=== PATIENT | female | born 1970 ===

== ENCOUNTER 2025-03-04 06:01 | Day surgery (SDC) | payer OTHER ==
[2025-02-24 08:15] VITALS: BP 114/75
[2025-02-24 08:19] LABS: HEMATOCRIT 36.1 % (36.0-45.00); HEMOGLOBIN 12.3 g/dL (12.0-15.00); MEAN CELL VOLUME 89.5 fL (80.00-100.00); MEAN CORPUSCULAR HEMOGLOBIN 30.4 pg (27.00-32.0); PLATELET COUNT 276 K/uL (150-450); RED BLOOD COUNT 4.04 M/uL (4.00-6.00); RED CELL DISTRIBUTION WIDTH 14.1 % (11.5-14.5)
[2025-02-24 08:30] LABS: INR < 0.93; PARTIAL THROMBOPLASTIN TIME 26.5 SECONDS (22.0-34.0)
[2025-02-24 08:37] LABS: PH,URINE 6.5 (5.0-8.0); URINE APPEARANCE Clear; URINE BILIRRUBIN Negative (NEGATIVE); URINE BLOOD Negative; URINE COLOR Yellow; URINE GLUCOSE Negative (NEGATIVE); URINE KETONE Negative (NEGATIVE); URINE LEUKOCYTE Negative; URINE NITRATE Negative; URINE PROTEIN Negative (NEGATIVE); URINE RBC 7.2 uL (0.0-20.8); URINE UROBILINOGEN 0.2 E.U./dl; URINE WBC 2.3 uL (0.0-23.2)
[2025-02-24 08:39] LABS: URINE BACTERIA 1.2 uL (0.0-1933)
[2025-02-24 09:01] LABS: ALBUMIN 3.8 gm/dL (3.4-5.0); BILIRUBIN TOTAL 0.49 mg/dL (0.3-1.2); CALCIUM 10.2 mg/dL (8.5-10.1); CREATININE SERUM 0.74 mg/dL (0.55-1.02); GFR 82.09; GLOBULINA 3.7 G/DL (2.4-3.5); POTASSIUM 5.1 mEq/L (3.5-5.1); TOTAL PROTEIN 7.5 gm/dL (6.4-8.2)
[2025-02-24 09:02] LABS: PROTHROMBIN TIME 9.9 SECONDS (9.0-11.5)
[~2025-03-04] VITALS: Ht 162.6 cm; Wt 64.4 kg
[~2025-03-04 06:01] MED LIST: ATACAND16 MG PO; CRESTOR40 MG
[2025-03-04] MEDS ORDERED: POVIDONE-IODINE 118 ML BOTT TOP ONE (09:12)
[2025-03-04] MEDS ORDERED: PROMETHAZINE HCL 50 MG/ML AMPUL IM ONE (10:15)
[2025-03-04] MEDS ORDERED: MORPHINE SULFATE 4 MG/ML VIAL IV PRN (10:15)
[2025-03-04] MEDS ORDERED: MORPHINE SULFATE 4 MG/ML VIAL IV ONE (11:10)
== END 2025-03-04 12:25 | disposition home or self-care (01) ==
LOC: CIR.AMB 06:01
PROVIDERS: ATTEND Student in an Organized Health Care Education/Training Program
DX: N84.0 Polyp of corpus uteri (principal); D25.9 Leiomyoma of uterus, unspecified; N95.0 Postmenopausal bleeding; N80.00 Endometriosis of the uterus, unspecified

== ENCOUNTER 2025-04-27 07:45 | Inpatient (IN) | payer OTHER ==
[~2025-04-27] VITALS: Ht 162.6 cm; Wt 64.4 kg
[2025-04-27 09:16] LABS: BASO % 1.2 % (0.1-1.2); EOS % 2.4 % (0.7-7.0); HEMATOCRIT 37.6 % (34.1-44.9); HEMOGLOBIN 12.2 g/dL (11.2-15.7); LYMPH # 1.21 (1.18-3.74); LYMPH % 29.1 % (19.3-53.1); MONO # 0.39 (0.24-0.82); MONO % 9.4 % (4.7-12.5); NEUT # 2.41 (1.56-6.13); NEUT % 57.9 % (34.0-71.1); PLATELET COUNT 290 K/uL (163-369); RED BLOOD COUNT 4.21 M/uL (3.93-5.22)
[2025-04-27 09:29] LABS: INR 1.01
[2025-04-27 09:47] LABS: ALBUMIN 3.8 gm/dL (3.4-5.0); BILIRUBIN TOTAL 0.7 mg/dL (0.3-1.2); CALCIUM 9.8 mg/dL (8.5-10.1); CREATININE SERUM 0.67 mg/dL (0.55-1.02); GFR 92.07; GLOBULINA 3.7 G/DL (2.4-3.5); POTASSIUM 4.56 mEq/L (3.5-5.1); TOTAL PROTEIN 7.5 gm/dL (6.4-8.2)
[2025-04-27 09:55] VITALS: BP 126/85
[2025-04-27 09:58] LABS: RH POSITIVE
[2025-05-04] MEDS ORDERED: METRONIDAZOLE/SODIUM CHLORIDE 500 MG/100 ML PIGGYBACK IV ONE (12:40)
[2025-05-04] MEDS ORDERED: CEFAZOLIN SODIUM 1,000 MG VIAL ONE (12:40)
[2025-05-04] MEDS ORDERED: POVIDONE-IODINE 118 ML BOTT TOP ONE (13:33)
[2025-05-04] MEDS ORDERED: HEPARIN SODIUM,PORCINE 5,000 UNITS/ML VIAL ONE (14:52)
[2025-05-04] MEDS ORDERED: ENALAPRILAT DIHYDRATE 1.25 MG/ML VIAL IV PRN (16:00)
[2025-05-04] MEDS ORDERED: ROSUVASTATIN CALCIUM 20 MG TABLET PO SCH (17:00)
[2025-05-04] MEDS ORDERED: BUPIVACAINE HCL/MPF 0.5% 30ML VIAL ONE (17:28)
[2025-05-04] MEDS ORDERED: SUGAMMADEX SODIUM 200 MG/2 ML VIAL IV ONE (18:34)
[2025-05-04] MEDS ORDERED: RINGERS SOLUTION,LACTATED 1,000 ML IV SCH (18:45)
[2025-05-04] MEDS ORDERED: GABAPENTIN 300 MG CAPSULE PO SCH (18:56)
[2025-05-04] MEDS ORDERED: ACETAMINOPHEN 500 MG GEL..CAP PO SCH (18:56)
[2025-05-04] MEDS ORDERED: ONDANSETRON HCL 2 MG/ML VIAL IV PRN (19:00)
[2025-05-04] MEDS ORDERED: KETOROLAC TROMETHAMINE 30 MG VIAL IV PRN (19:00)
[2025-05-04] MEDS ORDERED: MORPHINE SULFATE 4 MG/ML CARTRIDGE IV PRN (19:00)
[2025-05-04 22:36] VITALS: BP 121/68
[2025-05-05] VITALS: BP 109/70
[2025-05-05 06:34] LABS: BASO % 0.2 % (0.1-1.2); HEMATOCRIT 33.8 % (34.1-44.9); HEMOGLOBIN 11.2 g/dL (11.2-15.7); LYMPH # 0.72 (1.18-3.74); LYMPH % 6.6 % (19.3-53.1); MEAN CORPUSCULAR HEMOGLOBIN 29.4 pg (25.6-32.2); MONO % 5.5 % (4.7-12.5); NEUT # 9.58 (1.56-6.13); NEUT % 87.5 % (34.0-71.1); PLATELET COUNT 284 K/uL (163-369); RED BLOOD COUNT 3.81 M/uL (3.93-5.22); RED CELL DISTRIBUTION WIDTH 14.7 % (11.6-14.4)
[2025-05-05 08:17] VITALS: BP 103/66
[2025-05-05] MEDS ORDERED: CANDESARTAN CILEXETIL 16 MG TABLET PO SCH (09:00)
== END 2025-05-05 09:17 | disposition home or self-care (01) | DRG 741 ==
LOC: SURH 05-04 07:00 → O/R 05-04 11:00 → OB/GYN 05-04 19:31
PROVIDERS: ADMIT Student in an Organized Health Care Education/Training Program; ATTEND Student in an Organized Health Care Education/Training Program
PROC: 0UT74ZZ Resection of Bilateral Fallopian Tubes, Percutaneous Endoscopic Approach (ICD-10-PCS; 2025-05-04)
PROC: 0UT24ZZ Resection of Bilateral Ovaries, Percutaneous Endoscopic Approach (ICD-10-PCS; 2025-05-04)
PROC: 0TN74ZZ Release Left Ureter, Percutaneous Endoscopic Approach (ICD-10-PCS; 2025-05-04)
PROC: 0WBH4ZZ Excision of Retroperitoneum, Percutaneous Endoscopic Approach (ICD-10-PCS; 2025-05-04)
PROC: 0TJB8ZZ Inspection of Bladder, Via Natural or Artificial Opening Endoscopic (ICD-10-PCS; 2025-05-04)
PROC: 0UT94ZZ Resection of Uterus, Percutaneous Endoscopic Approach (ICD-10-PCS; principal; 2025-05-04 07:00)
DX: C54.9 Malignant neoplasm of corpus uteri, unspecified (principal); N80.103 Endometriosis of bilateral ovaries, unspecified depth; N80.352 Endometriosis of the left pelvic sidewall, unspecified depth